=== PATIENT | male | born 1965 | race Hispanic/Latino ===

== ENCOUNTER → 2016-10-24 | Day surgery (SDC) | payer OTHER ==
[~2016-10-24] VITALS: Ht 180.3 cm; Wt 95.3 kg
[~2016-10-24] MED LIST: IBUPROFEN800 M1 PO
--- NOTE | 2016-10-24 08:17 | Operative Report ---
Operative/Inv Procedure Report Surgery Date: 10/24/16 Name of Procedure: left extracorporeal shockwave lithotripsy Pre-Operative Diagnosis: left renal stone 7mm Post-Operative Diagnosis: same Estimated Blood Loss: scant Surgeon/Rope Cleaner: KRISTIN GREGORY MD Anesthesia: local monitored anesthesi Complications: none Condition: stable Operative Indication: left renal colic and 7mm stone Operative/Procedure Note Note: Rosales Still was identified in the holding area and consented for a left extracorporeal shockwave lithotripsy. He and his were given the risks, benefits and alternatives of the procedure. All questions were answered. He was marked on the left side with the marker. He was taken to the operating room and given IV sedation. No antibiotiocs were given. Time out was performed prior to anesthesia initiation. He was positioned for optimal stone treatment with the ESWL machine using US guidance. A 7mm stone was found in the midpole. This was treated with 200 shocks at 1-12 , then 300 shocks at 13-17, then 100 shocks at 18-19 and finally 1900 shocks at 20 power. The patient tolerated the procedure well. He was transferred to the MI surgery area. Findings: 7mm stone in the midpole of left kidney fragments to smaller sizes at end of ESWL. Discharge Disposition: Same Day Admissions
== END ==
LOC: STS 01:56
DX: N20.0 Calculus of kidney (principal); F17.200 Nicotine dependence, unspecified, uncomplicated; B19.20 Unspecified viral hepatitis C without hepatic coma
CPT/HCPCS: J0690; J2250

== ENCOUNTER 2016-11-27 11:04 | Emergency (ER) | payer OTHER ==
[~2016-11-27] VITALS: Ht 177.8 cm; Wt 95.3 kg
--- NOTE | 2016-11-27 11:35 | ED GENERAL ADULT ---
History of Present Illness General Chief Complaint: General Adult Stated Complaint: MUSCULAR LEFT SIDED RIB PAIN, FELT SOMETHING "POP" Source: patient Exam Limitations: no limitations Vital Signs & Intake/Output Vital Signs & Intake/Output Vital Signs Date Time Temp Pulse Resp B/P Pulse O2 O2 Flow FiO2 Ox Delivery Rate 11/27 1513 97.0 60 18 125/76 99 Room Air 11/27 1336 96.0 54 16 125/79 96 Room Air 11/27 1119 98.2 70 18 129/84 96 Room Air Allergies Coded Allergies: No Known Allergies (10/20/16) Reconcile Medications Ibuprofen 800 MG TABLET 1 TAB PO Q8 PRN PAIN Triage Note: RECEIVED 51 YO MALE C/O LEFT SIDED RIB PAIN, STARTED YESTERDAY AT WORK WHILE EXERTINH HIMSELF. PT REPORTS PAIN WORSE NOW AFTER EATING OR DRINKING. FEELS DISCOMFORT ALL THE TIME. Triage Nurses Notes Reviewed? yes HPI: Patient is a 51-year-old male presents complaining of left upper quadrant pain onset yesterday while working. 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 Pain is intermittent, at times severe. Worsens with eating, drinking and palpation. Pain becomes a burning sensation with eating and drinking. No change with twisting or abdominal flexion movements. Patient has never had similar symptoms. denies chest pain, dyspnea, nausea, vomiting, fevers, chills. (ANTONIO PANG) Past History Travel History Traveled to [place] past 21 day No Medical History Any Pertinent Medical History? see below for history Neurological: NONE EENT: NONE Cardiovascular: NONE Respiratory: NONE Gastrointestinal: NONE Hepatic: NONE, Renal: nephrolithiasis Musculoskeletal: NONE Psychiatric: NONE Endocrine: NONE Blood Disorders: NONE Cancer(s): NONE Surgical History Surgical History: non-contributory Psychosocial History What is your primary language Yakut Tobacco Use: Current Not Daily Daily Tobacco Use Amount/Type: =< 4 Cigarettes daily ETOH Use: denies use Illicit Drug Use: denies illicit drug use Family History Hx Contributory? No (ANTONIO PANG) Review of Systems Review of Systems Constitutional: Denies: chills, fever. EENTM: Reports: no symptoms. Respiratory: Denies: cough, short of breath. Cardiovascular: Denies: chest pain, syncope. GI: Reports: see HPI, abdominal pain. Genitourinary: Reports: no symptoms. Musculoskeletal: Denies: back pain. Skin: Reports: no symptoms. Neurological/Psychological: Reports: no symptoms. Hematologic/Endocrine: Reports: no symptoms. Immunologic/Allergic: Reports: no symptoms. (ANTONIO PANG) Physical Exam Physical Exam General Appearance: well developed/nourished, alert, awake Head: atraumatic, normal appearance Eyes: Bilateral: normal appearance, PERRL, EOMI. Ears, Nose, Throat: normal pharynx, normal ENT inspection, hearing grossly normal Neck: normal inspection, supple, full range of motion Respiratory: normal breath sounds, chest non-tender, no respiratory distress, lungs clear Cardiovascular: regular rate/rhythm (no appreciable murmur) Peripheral Pulses: 2+ dorsalis pedis (R), 2+ dorsalis pedis (L) Gastrointestinal: normal bowel sounds, soft, point tenderness left upper quadrant. No palpable pulsatile masses. Back: normal inspection, normal range of motion, no vertebral tenderness Extremities: normal inspection, normal capillary refill, normal range of motion, no edema Neurologic/Psych: no motor/sensory deficits, awake, alert, oriented x 3, normal gait, normal mood/affect Skin: intact, normal color, warm/dry Core Measures ACS in differential dx? Yes ASA ordered for poss ACS? No-ACS ruled out CVA/TIA Diagnosis: No Severe Sepsis Present: No Septic Shock Present: No (ANTONIO PANG) Progress Differential Diagnoses I considered the following diagnoses in my evaluation of the patient: Abdominal muscle strain, aortic dissection, acute coronary syndrome, pulmonary embolism, pancreatitis, gastritis Plan of Care: Orders Procedure Date/time Status TROPONIN LEVEL 11/27 1144 Complete LIPASE 11/27 1144 Complete COMPREHENSIVE METABOLIC PANEL 11/27 1144 Complete CBC WITHOUT DIFFERENTIAL 11/27 114 Complete EKG 11/27 1144 Active Laboratory Tests 11/27/16 1150: Anion Gap 12, Estimated GFR > 60, BUN/Creatinine Ratio 13.6, Glucose 95, Calcium 9.9, Total Bilirubin 0.9, AST 37, ALT 51, Alkaline Phosphatase 80, Troponin I < 0.01, Total Protein 8.0, Albumin 4.5, Globulin 3.5, Albumin/Globulin Ratio 1.3, Lipase 255, CBC w Diff NO MAN DIFF REQ, RBC 5.42, MCV 88.3, MCH 29.8, RDW 12.8, MPV 8.4, Gran % 48.6, Lymphocytes % 36.9, Monocytes % 10.8 H, Eosinophils % 3.0 , Basophils % 0.7, Absolute Granulocytes 3.8, Absolute Lymphocytes 2.9, Absolute Monocytes 0.9 H, Absolute Eosinophils 0.2, Absolute Basophils 0.1, PUBS MCHC 33.7 11/27/2016 3:25:29 PM: Results of labs and imaging discussed with patient. Patient resting comfortably, appears stable for discharge and outpatient follow- up. (PHILLY CARPIO,ANTONIO) Diagnostic Imaging: Viewed by Me: CT Scan. Discussed w/RAD: CT Scan. Radiology Impression: PATIENT: SHARRON PATEL PRESENT AGE: 51 PATIENT ACCOUNT NO: [id number] : 65 LOCATION: [facility] ORDERING PHYSICIAN: ANTONIO CARPIO SERVICE DATE: 11/27/16 EXAM TYPE: CAT - CT ABD & PELVIS ANGIOGRAM EXAMINATION: CTA OF THE ABDOMEN AND PELVIS CLINICAL INFORMATION: 51-year-old male presented with sudden upper abdominal pain, tenderness while walking. Clinical diagnosis of abdominal wall strain is made. Suspected aortic dissection. TECHNIQUE: Multiple axial images were obtained through the abdomen and pelvis using a [address] scan. 95 mL's of Optiray 350 was administered intravenously. Sagittal, coronal reconstructions were obtained at the acquisition workstation. Images will be evaluated on independent dedicated 3-D workstation and 3-D images will be reconstructed. An addendum will be dictated following obtaining the 3-D images. COMPARISON: Renal ultrasound done on 07/11/2016 and KUB done on 11/16/2016. DLP: 899.64 mGy-cm. FINDINGS: VASCULAR: 1. Celiac, mesenteric arteries: The celiac artery and both mesenteric arteries are widely patent. 2. Renal arteries: Single renal arteries noted on either side, appear widely patent. Incidental note is made of presence of 2 renal veins on the right. 3. Abdominal aorta: Appear widely patent at its entire course, caliber to the level of aortic bifurcation. 4. Iliac arteries: Both common, both internal and external iliac arteries and both common femoral arteries are also widely patent. NONVASCULAR: LUNG BASES: Hypoventilatory changes are present bilaterally. LIVER, GALLBLADDER, AND BILIARY TREE: The liver is normal in size, shape, and attenuation. No focal hepatic lesion or biliary ductal dilatation is present. Tiny punctate calcification is noted along the subcapsular surface of the segment 6 of right lobe of the liver at the hepatorenal space likely represent calcified punctate granuloma. The gallbladder is unremarkable with no evidence of radiopaque gallstones, gallbladder wall thickening, or obvious pericholecystic inflammatory changes. PANCREAS: Unremarkable. SPLEEN: Unremarkable. ADRENAL GLANDS: Unremarkable. KIDNEYS AND URETERS: There is a 0.2 cm nonobstructing calculus present at the mid lateral calyx of the left kidney. Otherwise, both kidneys appear unremarkable. BLADDER: Unremarkable. GASTROINTESTINAL TRACT: The small and large bowel are unremarkable. The appendix is nonvisualized. ABDOMINAL WALL: No significant hernia is appreciated. No evidence of any abdominal wall hematoma or fluid collection visualized. LYMPH NODES: Normal. PELVIC VISCERA: There is no pelvic mass present. There is no free fluid and/or free air present. OSSEOUS STRUCTURES : 2 foci of sclerosis is noted within the left femoral head anteriorly, most consistent with bone islands. No suspicious lytic or sclerotic abnormalities present. IMPRESSION: 1. No CT evidence of any abdominal aortic dissection present. 2. 2 mm nonobstructing left renal calculus is noted. 3. Tiny calcified nodule is noted within the right lobe of the liver likely represent a tiny calcified granuloma. 4. 2 foci of sclerosis within the left femoral head, most consistent with bone islands. Please note that this is a preliminary report for the CTA part of the study. Images will be evaluated on independent dedicated 3-D workstation and 3-D images will be reconstructed. An addendum will be dictated following obtaining the 3-D images. DICTATED BY: YISEL HE MD DATE/TIME DICTATED:11/27/161352 SNAGGER:VITOR DATE/TIME TRANSCRIBED:1352 CONFIDENTIAL, DO NOT COPY WITHOUT APPROPRIATE AUTHORIZATION. < Electronically signed in Other Vendor System> SIGNED BY: YISEL HE MD 11/27/16 7574 Initial ED EKG: normal sinus rhythm 64 bpm normal axis, left anterior fascicular block, no acute ischemic ST/T-wave abnormalities. (ANTONIO PANG) Departure Departure Time of Disposition: 1508 Disposition: HOME OR SELF CARE Condition: Stable Clinical Impression Primary Impression: Abdominal muscle strain Qualifiers: Encounter type: initial encounter Qualified Code: S39.011A - Strain of muscle, fascia and tendon of abdomen, initial encounter Referrals: ALEXIS HARRIS,JUAN A Retana (PCP/Family) Additional Instructions: Follow-up with occupational medicine this week for further evaluation, call tomorrow for appointment. Return to the emergency department if fevers, chest pain, difficulty breathing, worsening of symptoms. Departure Forms: Customer Survey Employee Industrial Accident General Discharge Information Prescriptions: Current Visit Scripts Ibuprofen 1 TAB PO Q8 PRN PAIN #20 TAB (ANTONIO PANG) PA/UI UX DEVELOPER Co-Sign Statement Statement: ED Attending supervision documentation- [] I saw and evaluated the patient. I have also reviewed all the pertinent lab results and diagnostic results. I agree with the findings and the plan of care as documented in the PA's/UI UX DEVELOPER's documentation. [X] I have reviewed the ED Record and agree with the PA's/UI UX DEVELOPER's documentation. [] Additions or exceptions (if any) to the PAs/UI UX DEVELOPER's note and plan are summarized below: [] (TERRIE GUERRA,WING) Critical Care Note Critical Care Note Critical Care Time: non-applicable (ANTONIO PANG)
[2016-11-27 12:10] LABS: ABSOLUTE BASOPHIL COUNT 0.1 /CUMM (0.0-0.2); ABSOLUTE EOSINOPHIL COUNT 0.2 /CUMM (0.0-0.7); ABSOLUTE GRANULOCYTE CT 3.8 /CUMM (1.4-6.5); ABSOLUTE LYMPH COUNT 2.9 /CUMM (1.2-3.4); ABSOLUTE MONOCYTE COUNT 0.9 /CUMM (0.10-0.60); BASOPHIL % 0.7 % (0.0-2.0); GRANULOCYTE % 48.6 % (42.2-75.2); HEMATOCRIT 47.8 % (42-52); MEAN CORPUSCULAR HGB 29.8 PG (27.0-31.0); MEAN CORPUSCULAR HGB CONC 33.7 G/DL (33.0-37.0); MEAN CORPUSCULAR VOLUME 88.3 FL (80.0-94.0); MEAN PLATELET VOLUME 8.4 FL (7.4-10.4); PLATELET COUNT 230 /CUMM (130-400); RBC DISTRIBUTION WIDTH 12.8 % (11.5-14.5); RED BLOOD CELL CT 5.42 /CUMM (4.70-6.10); WHITE BLOOD CELL COUNT 7.9 /CUMM (4.8-10.8)
--- NOTE | 2016-11-27 14:54 | CT SCAN REPORT ---
EXAMINATION: CTA OF THE ABDOMEN AND PELVIS CLINICAL INFORMATION: 51-year-old male presented with sudden upper abdominal pain, tenderness while walking. Clinical diagnosis of abdominal wall strain is made. Suspected aortic dissection. TECHNIQUE: Multiple axial images were obtained through the abdomen and pelvis using a [address] scan. 95 mL's of Optiray 350 was administered intravenously. Sagittal, coronal reconstructions were obtained at the acquisition workstation. Images will be evaluated on independent dedicated 3-D workstation and 3-D images will be reconstructed. An addendum will be dictated following obtaining the 3-D images. COMPARISON: Renal ultrasound done on 07/11/2016 and KUB done on 11/16/2016. DLP: 899.64 mGy-cm. FINDINGS: VASCULAR: 1. Celiac, mesenteric arteries: The celiac artery and both mesenteric arteries are widely patent. 2. Renal arteries: Single renal arteries noted on either side, appear widely patent. Incidental note is made of presence of 2 renal veins on the right. 3. Abdominal aorta: Appear widely patent at its entire course, caliber to the level of aortic bifurcation. 4. Iliac arteries: Both common, both internal and external iliac arteries and both common femoral arteries are also widely patent. NONVASCULAR: LUNG BASES: Hypoventilatory changes are present bilaterally. LIVER, GALLBLADDER, AND BILIARY TREE: The liver is normal in size, shape, and attenuation. No focal hepatic lesion or biliary ductal dilatation is present. Tiny punctate calcification is noted along the subcapsular surface of the segment 6 of right lobe of the liver at the hepatorenal space likely represent calcified punctate granuloma. The gallbladder is unremarkable with no evidence of radiopaque gallstones, gallbladder wall thickening, or obvious pericholecystic inflammatory changes. PANCREAS: Unremarkable. SPLEEN: Unremarkable. ADRENAL GLANDS: Unremarkable. KIDNEYS AND URETERS: There is a 0.2 cm nonobstructing calculus present at the mid lateral calyx of the left kidney. Otherwise, both kidneys appear unremarkable. BLADDER: Unremarkable. GASTROINTESTINAL TRACT: The small and large bowel are unremarkable. The appendix is nonvisualized. ABDOMINAL WALL: No significant hernia is appreciated. No evidence of any abdominal wall hematoma or fluid collection visualized. LYMPH NODES: Normal. PELVIC VISCERA: There is no pelvic mass present. There is no free fluid and/or free air present. OSSEOUS STRUCTURES: 2 foci of sclerosis is noted within the left femoral head anteriorly, most consistent with bone islands. No suspicious lytic or sclerotic abnormalities present. IMPRESSION: 1. No CT evidence of any abdominal aortic dissection present. 2. 2 mm nonobstructing left renal calculus is noted. 3. Tiny calcified nodule is noted within the right lobe of the liver likely represent a tiny calcified granuloma. 4. 2 foci of sclerosis within the left femoral head, most consistent with bone islands. Please note that this is a preliminary report for the CTA part of the study. Images will be evaluated on independent dedicated 3-D workstation and 3-D images will be reconstructed. An addendum will be dictated following obtaining the 3-D images.
[2016-11-27] MEDS ORDERED: IBUPROFEN800 M1 PO (15:09)
[2016-11-27 15:13] VITALS: BP 125/76
== END 2016-11-27 15:17 ==
LOC: ERH 11:04
PROVIDERS: Physician Assistant
DX: S39.011A Strain of muscle, fascia and tendon of abdomen, initial encounter (principal); X58.XXXA Exposure to other specified factors, initial encounter; Y92.9 Unspecified place or not applicable; Y93.9 Activity, unspecified
CPT/HCPCS: 74174; 93005; 93010

== ENCOUNTER 2017-12-02 13:23 | Emergency (ER) | payer OTHER ==
[2017-12-02 14:19] VITALS: BP 116/69
--- NOTE | 2017-12-02 16:28 | CT SCAN REPORT ---
EXAMINATION: CT HEAD WITHOUT CONTRAST CT CERVICAL SPINE WITHOUT CONTRAST. CT MAXILLOFACIAL WITHOUT CONTRAST CLINICAL INFORMATION: Trauma COMPARISON: None TECHNIQUE: Contiguous axial imaging was performed from the head, face and cervical spine without intravenous administration of contrast. Coronal and sagittal reformatted images were obtained. DLP: 1639.25 mGy-cm FINDINGS: HEAD: There is no evidence of acute intracranial hemorrhage or territorial infarction. No abnormal mass effect or midline shift is seen. Gibson to white matter differentiation is well preserved. No extra-axial fluid collections are identified. The ventricles are normal in size. There is no abnormal attenuation within the brain parenchyma. The osseous structures and soft tissues are normal. The mastoid air cells and visualized portions of the paranasal sinuses are well aerated. There is mild preseptal left orbital soft tissue stranding which could be trauma related. The finding is better seen on axial image 59/256 from series 6. CERVICAL SPINE: The vertebral body height and alignment of cervical spine are within normal limits. The intervertebral disc spaces are preserved. The posterior arch of C1 is rudimentary on the right side, likely a congenital finding. 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 There is no acute fracture or dislocation of cervical spine. The paraspinal soft tissues are unremarkable. The visualized lung apices are clear. MAXILLOFACIAL: There is no acute fracture or dislocation of the facial bones. The TM joints are within normal limits. There is nasal septal deviation. The paranasal sinuses are well aerated and clear. The visualized mastoid air cells are well pneumatized. There is minimal preseptal soft tissue stranding on the left side which could be traumatic. The orbits are intact. No post septal hematoma. IMPRESSION: No acute intracranial hemorrhage. No acute skull fracture. No acute fracture or dislocation of the cervical spine. No acute facial fracture. Mild preseptal soft tissue stranding in the left orbit. No other acute traumatic injuries of the face noted. 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
--- NOTE | 2017-12-02 17:02 | ED HEAD/FACIAL INJ COMPLAINT ---
History of Present Illness General Chief Complaint: Facial or Head Injury Stated Complaint: HIT HEAD AGAINST L SIDE OF FACE AT WORK Source: patient, family, old records Exam Limitations: no limitations Vital Signs & Intake/Output Vital Signs & Intake/Output Vital Signs Date Time Temp Pulse Resp B/P B/P Pulse O2 O2 Flow FiO2 Mean Ox Delivery Rate 12/02 1419 97.0 68 16 116/69 95 Room Air Allergies Coded Allergies: No Known Allergies (10/20/16) Reconcile Medications Ibuprofen 800 MG TABLET 1 TAB PO Q8 PRN PAIN Ibuprofen 800 MG TABLET 1 TAB PO TID pain Triage Note: PT PRESENTS TO THE ER C/O HITTING HIS HEAD ON THE LEFT SIDE WITH A PIECE OF METAL HANGING FROM THE CEILING.. PT WALKED INTO IT.. PT STATES HE HAS PAIN INSIDE HIS LEFT EYE 8/10. Triage Nurses Notes Reviewed? yes Onset: Abrupt Severity: mild Severity Numbers: 4 Location: frontal, temporal Method of Injury: direct blow Loss of Consciousness: no loss of consciousness Associated Symptoms: denies HPI: 52-year-old male presents to ER with history of bilateral lens transplant in 2016 complaining of left-sided facial and head pain. He was doing work in a basement today when he states he got up too quickly and it is left-sided his head against a piece of metal. Pain is 8 out of 10. He denies headache there was no loss of consciousness. No nausea no vomiting. He denies any vision changes. No neck back arm or leg injury. There is no epistaxis no dental trauma Past History Travel History Traveled to [place] past 21 day No Medical History Any Pertinent Medical History? see below for history Neurological: NONE EENT: NONE Cardiovascular: NONE, endocarditis Respiratory: NONE Gastrointestinal: hep c and hepatocellular carcinoma. Hepatic: NONE, Renal: nephrolithiasis Musculoskeletal: NONE Psychiatric: NONE Endocrine: NONE Blood Disorders: NONE Cancer(s): NONE Surgical History Surgical History: non-contributory Psychosocial History What is your primary language Japanese Tobacco Use: Never used Family History Family History, If Any: FATHER FHx: renal failure MOTHER Joint disorder Hx Contributory? No Review of Systems Review of Systems Constitutional: Reports: see HPI. Comments Review of systems: See HPI, All other systems negative. Constitutional, no chills no fever HEENT: no sore throat no congestion Cardiovascular: No chest pain , no palpitation Skin: no rashes, no change in skin Respiratory: No dyspnea no cough GI: No nausea no vomiting Muscle skeletal: No joint pain, no back pain Neurologic: , no headache Heme/endocrine: No bruising Physical Exam Physical Exam General Appearance: well developed/nourished, no apparent distress, alert, awake , comfortable Cranial Nerves: normal hearing, normal speech, PERRL Comments: Well-developed well-nourished patient in no apparent distress. Head/Face: Atraumatic, no ecchymosis, no facial swelling Eyes: PERRL, EOMI, no conjunctival injection. No nystagmus, no hyphema Ear:External auditory canals clear, no erythema, no bleeding, no hemotypanum Nose: atraumatic.Normal inspection: Throat: Moist mucous membranes.Pharynx normal. No pharyngeal erythema/exudate seen. No stridor/drooling or assymetry. No swelling or edema. Neck: Supple, no lymphadenopathy, FROM Back: FROM Respiratory: No respiratory distress. Patient speaking in full complete sentences. Extremities: full range of motion Neuro: awake, alert, and oriented to person, place and time. There were no obvious focal neurologic abnormalities. Skin: Warm & dry;No appreciable rash on exposed skin Psych: Mood affect normal, normal memory normal judgment. Progress Differential Diagnosis: globe injury, ICH, orbit fracture, skull fracture Plan of Care: CAT scan was ordered from triage. 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 Discussed w/RAD: CT Scan. Radiology Impression: PATIENT: SHARRON PATEL PRESENT AGE: 52 PATIENT ACCOUNT NO: [id number] : 65 LOCATION: [facility] ORDERING PHYSICIAN: Hal CARPIO SERVICE DATE: 12/02/17 EXAM TYPE: CAT - CT CERV SPINE WO IV CONTRAST; CT HEAD WO IV CONTRAST; CT MAXILLOFACIAL W/O CON EXAMINATION: CT HEAD WITHOUT CONTRAST CT CERVICAL SPINE WITHOUT CONTRAST. CT MAXILLOFACIAL WITHOUT CONTRAST CLINICAL INFORMATION: Trauma COMPARISON: None TECHNIQUE: Contiguous axial imaging was performed from the head, face and cervical spine without intravenous administration of contrast. Coronal and sagittal reformatted images were obtained. DLP: 1639.25 mGy-cm FINDINGS: HEAD: There is no evidence of acute intracranial hemorrhage or territorial infarction. No abnormal mass effect or midline shift is seen. Gibson to white matter differentiation is well preserved. No extra-axial fluid collections are identified. The ventricles are normal in size. There is no abnormal attenuation within the brain parenchyma. The osseous structures and soft tissues are normal. The mastoid air cells and visualized portions of the paranasal sinuses are well aerated. There is mild preseptal left orbital soft tissue stranding which could be trauma related. The finding is better seen on axial image 59/256 from series 6. CERVICAL SPINE: The vertebral body height and alignment of cervical spine are within normal limits. The intervertebral disc spaces are preserved. The posterior arch of C1 is rudimentary on the right side, likely a congenital finding. 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 There is no acute fracture or dislocation of cervical spine. The paraspinal soft tissues are unremarkable. The visualized lung apices are clear. MAXILLOFACIAL: There is no acute fracture or dislocation of the facial bones. The TM joints are within normal limits. There is nasal septal deviation. The paranasal sinuses are well aerated and clear. The visualized mastoid air cells are well pneumatized. There is minimal preseptal soft tissue stranding on the left side which could be traumatic. The orbits are intact. No post septal hematoma. IMPRESSION: No acute intracranial hemorrhage. No acute skull fracture. No acute fracture or dislocation of the cervical spine. No acute facial fracture. Mild preseptal soft tissue stranding in the left orbit. No other acute traumatic injuries of the face noted. 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 DICTATED BY: Stu Gasca MD DATE/TIME DICTATED:12/02/171557 STAFF WRITER:VITOR DATE/TIME TRANSCRIBED:12/02/171557 CONFIDENTIAL, DO NOT COPY WITHOUT APPROPRIATE AUTHORIZATION. <Electronically signed in Other Vendor System> SIGNED BY: Stu Gasca MD 12/02/17 162 Departure Departure Time of Disposition: 1706 Disposition: HOME OR SELF CARE Condition: Stable Clinical Impression Primary Impression: Minor head injury without loss of consciousness Referrals: Dawood HARRIS,Ang Retana (PCP/Family) Additional Instructions: ice as needed. tylenol or motrin for pain. follow up with your eye physician next week or return with any concerns Departure Forms: Customer Survey General Discharge Information
== END 2017-12-02 17:13 ==
LOC: ERH 13:23
DX: S09.90XA Unspecified injury of head, initial encounter (principal); W22.8XXA Striking against or struck by other objects, initial encounter; Y92.9 Unspecified place or not applicable; Y93.9 Activity, unspecified